=== PATIENT | female | born 2000 | race Caucasian/White ===

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

== ENCOUNTER 2022-05-31 12:45 | Emergency (ER) | payer BC, SELFPAY ==
[2022-05-31 12:46] VITALS: BP 146/84; PULSE 88; RESP 16; TEMP 36.8; O2SAT 97; BMI 39.4
--- NOTE | 2022-05-31 12:57 | HMH.EDABDPAI ---
ED Disposition Clinical Impression: Gastritis Qualifiers: Gastritis type: unspecified gastritis Chronicity: acute Gastritis bleeding: without bleeding Qualified Code(s): K29.00 - Acute gastritis without bleeding Disposition: Home, Self-Care Condition on Discharge: Fair Instructions: DI for Gastritis Additional Instructions: You may take giaa-ntb-ddlbxen antacids such as Tums. Speak with your body mechanic apprentice before starting any other kinds of medications for this reflux/gastritis. Return to the emergency department immediately if you feel worse in any way. Acetaminophen/Tylenol is also considered safe in if you need pain relief. Referrals: Adrienne Rojas APRN [Primary Care Provider] - - Critical Care Critical Care Time: No Attestation: On 05/31/22, the high probability of a clinically significant, sudden or life threatening deterioration of the following system(s) required my full and direct attention, intervention and personal management. The time I documented below is in addition to time spent performing reported procedures but includes the following listed in this critical care notation. Medical Decision Making - Stefan Inquiry Pt receiving controlled substance: No Vital Signs: 05/31/22 12:46 05/31/22 12:58 05/31/22 13:30 Temperature 98.3 F Temperature Source Oral Pulse Rate 107 H 86 Pulse Rate [Right] 88 Respiratory Rate 16 18 Blood Pressure 156/95 H 146/84 H Blood Pressure [Right Arm] 146/84 H Blood Pressure Mean 112 104 Blood Pressure Mean [Right Arm] 104 Blood Pressure Source [Right Arm] Automatic Cuff Blood Pressure Position [Right Arm] Sitting 02 Sat by Pulse Oximetry 97 99 96 Oxygen Delivery Method Room Air - Lab Data Lab results reviewed: Yes: I reviewed the patient's lab results. Lab Results 05/31/22 12:58: Urine Color Yellow, Urine Appearance Clear, Urine pH 6.0, Ur Specific [place] >= 1.030, Urine Protein Trace, Urine Glucose (UA) Negative, Urine Ketones Negative, Urine Blood Negative, Urine Nitrate Negative, Urine Bilirubin Negative, Urine Urobilinogen 1.0, Ur Leukocyte Esterase Negative, Urine RBC None, Urine WBC Occasional, Ur Squamous Epith Cells Occasional, Urine Bacteria Trace 05/31/22 13:10: WBC 9.4, RBC 4.71, Hgb 14.3, Hct 40.0, MCV 85.0, MCH 30.4, MCHC 35.8 H, RDW 12.6, Plt Count 310, MPV 7.7, Neut % (Auto) 75.3, Lymph % (Auto) 16.6, [place] % (Auto) 6.2, Eos % (Auto) 1.4, Baso % (Auto) 0.5, Neut # (Auto) 7.1, Lymph # (Auto) 1.6, [place] # (Auto) 0.6, Eos # (Auto) 0.1, Baso # (Auto) 0.1 05/31/22 13:10: Sodium 136, Potassium 3.7, Chloride 104, Carbon Dioxide 24, Anion Gap 11.7, BUN 7, Creatinine 0.70, Estimated Creat Clear 216, Estimated GFR 106, Est GFR ( Amer) 128, Glucose 111 H, Calcium 9.4, Total Bilirubin 0.4, AST 41 H, ALT 45, Alkaline Phosphatase 72, Total Protein 7.4, Albumin 4.3, Globulin 3.1, Albumin/Globulin Ratio 1.4, Lipase 77 Result diagrams: 05/31/22 13:10 05/31/22 13:10 Orders (Tests/Meds): ED MEDICATIONS Discontinued Medications Generic Name Dose Route Start Last Admin Trade Name Freq PRN Reason Stop Dose Admin Belladonna Alkaloids 60 ml 05/31/22 13:46 05/31/22 13:47 Gi Cocktail 60ml Udc PO 05/31/22 13:47 60 ml ONCE ONE Administration Dicyclomine HCl 20 mg 05/31/22 12:59 05/31/22 13:18 Dicyclomine 20 Mg/2ml Vial IM 05/31/22 13:00 20 mg ONCE ONE Administration Ondansetron HCl 4 mg 05/31/22 12:59 05/31/22 13:18 Ondansetron 4mg/2ml Vial IV 05/31/22 13:00 4 mg ONCE ONE Administration - Reevaluation(s) Time: 13:46 Reevaluation #1: The nominal pain did not improve after Bentyl. Nausea has improved some. Medical Decision Narrative: The patient presents to the emergency department complaining of epigastric pain with vomiting. Work-up in the emergency department did not reveal any life-threatening or dangerous causes for the patient's symptoms. She is 6 weeks . However she d
[2022-05-31 12:58] VITALS: BP 156/95; PULSE 107; RESP 18; O2SAT 99
[2022-05-31 13:00] LABS: Microscopic, Urine URINE MICROSCOPIC (MICROSCOPIC)
[2022-05-31 13:09] LABS: Appearance,Urine CLEAR (Clear); Bilirubin,Urine Negative (Negative); Blood, Urine Negative (Negative); Color,Urine YELLOW (Yellow); Glucose,Urine (UA) Negative (Negative); Ketones,Urine Negative (Negative); Leukocyte Esterase,Urine Negative (Negative); Nitrate,Urine Negative (Negative); Protein,Urine TRACE (Negative); Specific Gravity, Urine >= 1.030 (1.005-1.030)
--- NOTE | 2022-05-31 13:14 | PC.NURSE ---
spoke with Dino in pharmacy both meds ok to be given during
[2022-05-31 13:23] LABS: Bacteria,Urine Trace /lpf; Squamous Epithelial Cell,Urine Occasional #/hpf (0-5); WBC,Urine Occasional #/hpf (0-3)
[2022-05-31 13:24] LABS: Basophils # 0.1 K/mm3 (0-0.2); Basophils % 0.5 % (0.1-2.0); Eosinophils # 0.1 K/mm3 (0.0-0.4); Eosinophils % 1.4 % (0.1-12.0); Hemoglobin 14.3 g/dL (12.2-16.2); Lymphocytes # 1.6 K/mm3 (0.7-4.5); Lymphocytes % 16.6 % (10-50); Mean Corpuscular HGB Conc 35.8 g/dL (31.8-35.4); Mean Corpuscular Hemoglobin 30.4 pg (27.0-31.2); Mean Platelet Volume 7.7 fl (7.4-10.4); Monocytes # 0.6 K/mm3 (0.1-1.0); Monocytes % 6.2 % (1.7-9.3); Neutrophils # 7.1 K/mm3 (1.8-7.8); Neutrophils % 75.3 % (37.0-80.0); Platelet Count 310 K/mm3 (142-424); Red Blood Count 4.71 M/mm3 (4.20-5.40); Red Cell Distribution Width 12.6 % (11.5-17.5); White Blood Count 9.4 K/mm3 (4.8-10.8)
[2022-05-31 13:30] VITALS: BP 146/84; PULSE 86; O2SAT 96
--- NOTE | 2022-05-31 13:35 | PC.NURSE ---
rounded on pt at this time. No new needs at this time. Pt resting in bed
[2022-05-31 13:38] LABS: Chloride 104 mmol/L (98-107)
[2022-05-31 13:39] LABS: Potassium 3.7 mmoL/L (3.5-5.1); Sodium 136 mmol/L (136-145)
[2022-05-31 13:41] LABS: Alanine Aminotransferase 45 U/L (12-78); Aspartate Amino Transferase 41 U/L (14-36); Blood Urea Nitrogen 7 mg/dl (7-17); Creatinine Clearance Estimated 216 mL/min (50-200); Estimated Glomerular Filt Rate 106 ml/min (>60); GFR (African American) 128 ML/MIN (>60)
[2022-05-31 13:42] LABS: Albumin Level 4.3 g/dl (3.5-5.0); Albumin/Globulin Ratio 1.4 (1.1-1.8); Alkaline Phosphatase 72 U/L (38-126); Anion Gap 11.7 mEq/L (5-15); Bilirubin,Total 0.4 mg/dl (0.2-1.3); Calcium 9.4 mg/dl (8.4-10.2); Carbon Dioxide 24 mmol/L (22.0-30.0); Globulin 3.1 g/dL (1.3-3.2); Glucose 111 mg/dl (74-100); Lipase 77 U/L (23-300); Total Protein,Serum 7.4 g/dl (6.3-8.2)
[2022-05-31 14:17] VITALS: BP 144/81; PULSE 90; RESP 16; TEMP 36.8; O2SAT 98
== END 2022-05-31 14:20 | disposition home or self-care (01) ==
PROVIDERS: Emergency Provider Emergency Medicine; PCP Nurse Practitioner
DX: O26.891 Other specified pregnancy related conditions, first trimester (principal); K29.00 Acute gastritis without bleeding; Z3A.01 Less than 8 weeks gestation of pregnancy
CPT/HCPCS: 80053; 81001; 83690; 85025; 96372; 96374; 99284; J2405

== ENCOUNTER → 2022-06-17 11:18 | Outpatient (CLI) | payer OTHER, SELFPAY ==
[2022-06-17 12:18] LABS: Basophils % 0.5 % (0.1-2.0); Eosinophils % 0.5 % (0.1-12.0); Hematocrit 40.6 % (37.0-47.0); Hemoglobin 14.1 g/dL (12.2-16.2); Lymphocytes # 1.7 K/mm3 (0.7-4.5); Mean Corpuscular HGB Conc 34.7 g/dL (31.8-35.4); Mean Corpuscular Hemoglobin 30.4 pg (27.0-31.2); Mean Corpuscular Volume 87.7 fl (81-99); Mean Platelet Volume 7.7 fl (7.4-10.4); Monocytes # 0.3 K/mm3 (0.1-1.0); Neutrophils # 6.1 K/mm3 (1.8-7.8); Neutrophils % 73.9 % (37.0-80.0); Platelet Count 329 K/mm3 (142-424); Red Blood Count 4.63 M/mm3 (4.20-5.40); Red Cell Distribution Width 12.6 % (11.5-17.5); White Blood Count 8.2 K/mm3 (4.8-10.8)
[2022-06-18 06:14] LABS: Rubella Antibodies, IgG <0.90 index (Immune >0.99)
[2022-06-18 07:26] LABS: HIV Screen 4th Generation wRfx Non Reactive (Non Reactive); Hepatitis B Surface Antigen Negative (Negative); Hepatitis C Antibody <0.1 s/co ratio (0.0-0.9)
[2022-06-18 09:12] LABS: Rapid Plasma Reagin Ab Titer Non Reactive (NonRea<1:1)
== END ==
PROVIDERS: PCP Nurse Practitioner; Visit Provider Obstetrics & Gynecology
DX: Z34.90 Encounter for supervision of normal pregnancy, unspecified, unspecified trimester (principal)
CPT/HCPCS: 36415; 85025; 86592; 86703; 86762; 86850; 87086; 87340; 87380; G0432

== ENCOUNTER → 2022-09-09 12:44 | Outpatient (CLI) | payer BC, OTHER, SELFPAY ==
--- NOTE | 2022-09-09 12:44 | US_ITS ---
FINAL REPORT CLINICAL HISTORY: 20 week anatomy scan FINDINGS: There is a single live intrauterine gestation. Presentation is cephalic. The cervix is closed and measures 3.2 cm. Placenta is posterior, grade 1. movement is noted. Heart rate is noted at 150 beats per minute. Three-vessel cord with satisfactory umbilical cord insertion. Four-chamber heart is noted. ABDOMEN: Stomach is unremarkable. SPINE: No anomalies identified. AMNIOTIC FLUID: Appropriate amount. MEASUREMENTS: ULTRASOUND AGE: 20 weeks 3 days. GESTATION AGE: 20 weeks 5 days. ESTIMATED WEIGHT: 343 g GROWTH PERCENTILE: 23 % BPD: 4.85 cm corresponding to 20 weeks 5 days. OFD: 6.21 cm corresponding to 20 weeks 6 days. HC: 17.50 cm corresponding to 20 weeks 1 day. AC: 14.84 cm corresponding to 20 week 1 day. FL: 3.35 cm corresponding to 20 week 4 days. CEREBELLUM: 2.09 cm corresponding to 21 weekly day. HUMERUS: 3.24 cm corresponding to 21 weeks 0 days. HC/AC: 1.18 CI: 78% FL/BPD: 69% FL/AC: 23% IMPRESSION: Single living IUP with an ultrasound age of 20 weeks 3 days. Reviewed, Interpreted and Dictated by Joshua Wilson III, MD Transcribed by Emily Meyer Authenticated and [facility]
== END ==
PROVIDERS: PCP Nurse Practitioner; Visit Provider Obstetrics & Gynecology
DX: Z34.90 Encounter for supervision of normal pregnancy, unspecified, unspecified trimester (principal); Z3A.20 20 weeks gestation of pregnancy
CPT/HCPCS: 76811

== ENCOUNTER → 2022-10-13 09:31 | Outpatient (CLI) | payer BC, OTHER, SELFPAY ==
[2022-10-13 10:01] LABS: Basophils % 0.5 % (0.1-2.0); Eosinophils % 0.4 % (0.1-12.0); Hematocrit 39.8 % (37.0-47.0); Hemoglobin 13.1 g/dL (12.2-16.2); Lymphocytes # 1.7 K/mm3 (0.7-4.5); Lymphocytes % 18.9 % (10-50); Mean Corpuscular Hemoglobin 29.9 pg (27.0-31.2); Mean Corpuscular Volume 90.5 fl (81-99); Mean Platelet Volume 8.9 fl (7.4-10.4); Monocytes # 0.4 K/mm3 (0.1-1.0); Monocytes % 3.9 % (1.7-9.3); Neutrophils # 6.9 K/mm3 (1.8-7.8); Neutrophils % 76.4 % (37.0-80.0); Platelet Count 335 K/mm3 (142-424)
[2022-10-13 10:12] LABS: Glucose,Fasting 86 mg/dl (74-100)
[2022-10-13 11:45] LABS: Glucose 1 Hour 102 mg/dL (74-100)
== END ==
PROVIDERS: PCP Nurse Practitioner; Visit Provider Obstetrics & Gynecology
DX: Z34.90 Encounter for supervision of normal pregnancy, unspecified, unspecified trimester (principal); Z3A.20 20 weeks gestation of pregnancy
CPT/HCPCS: 36415; 82951; 85025

== ENCOUNTER 2022-10-22 08:06 | Outpatient (CLI) | payer BC, OTHER, SELFPAY ==
[2022-10-22 08:09] VITALS: BMI 36.4
[2022-10-22 08:27] LABS: Microscopic, Urine URINE MICROSCOPIC (MICROSCOPIC)
[2022-10-22 08:44] LABS: Appearance,Urine SL CLOUDY (Clear); Blood, Urine Negative (Negative); Color,Urine YELLOW (Yellow); Glucose,Urine (UA) Negative (Negative); Ketones,Urine 3+ (Negative); Leukocyte Esterase,Urine Negative (Negative); Nitrate,Urine Negative (Negative); Protein,Urine 2+ (Negative); Specific Gravity, Urine >= 1.030 (1.005-1.030)
[2022-10-22 08:55] LABS: Amphetamine/Metha Screen,Urine Negative ng/ml (<1000); Benzodiazepines Screen,Urine Negative ng/ml (<200)
[2022-10-22 08:56] LABS: Barbiturates Screen,Urine Negative ng/ml (<200); Bilirubin,Urine Negative (Negative)
[2022-10-22 08:57] VITALS: BP 131/77; PULSE 115; RESP 18; TEMP 36.7; O2SAT 97; BMI 36.4
[2022-10-22 08:57] LABS: Cannabinoid Screen,Urine Negative ng/ml (<50); Cocaine Screen,Urine Negative ng/ml (<300)
[2022-10-22 08:58] LABS: Methadone Screen,Urine Negative ng/ml (<300); Phencyclidine Screen,Urine Negative ng/ml (<25)
[2022-10-22 08:59] LABS: Bacteria,Urine 2+ /lpf; Fine Granular Casts,Urine Occasional #/lpf (0); Mucus,Urine Trace /lpf; Opiate Screen,Urine Negative ng/ml (<300); RBC,Urine Occasional #/hpf (0-3); Squamous Epithelial Cell,Urine 50-100 #/hpf (0-5)
== END 2022-10-22 09:55 | disposition home or self-care (01) ==
LOC: OBOUT 08:08 → OB 08:08
PROVIDERS: PCP Nurse Practitioner; Visit Provider Nurse Practitioner Obstetrics & Gynecology
DX: O26.892 Other specified pregnancy related conditions, second trimester (principal); Z3A.26 26 weeks gestation of pregnancy; R11.2 Nausea with vomiting, unspecified; R10.9 Unspecified abdominal pain; M54.50 Low back pain, unspecified
CPT/HCPCS: 59025; 80305; 81001; 87086; 96365; 96367; G0463; J2405

== ENCOUNTER → 2022-11-24 12:59 | Outpatient (CLI) | payer BC, OTHER, SELFPAY ==
--- NOTE | 2022-11-24 12:59 | US_ITS ---
FINAL REPORT CLINICAL HISTORY: Growth and SUSANA FINDINGS: There is a single live intrauterine gestation. Presentation is cephalic. Placenta is posterior and grade 2. Heart rate is 153 beats per minute. The cervix measures 3.5 cm. The fetus is active. Visualized anatomy is within normal limits. AMNIOTIC FLUID: Borderline low SUSANA: 9 cm MEASUREMENTS: ULTRASOUND AGE: 31 weeks 1 days. GESTATION AGE: 31 weeks 4 days. ESTIMATED WEIGHT: 1678 g GROWTH PERCENTILE: 21% BPD: 7.8 cm consistent with 31 weeks 3 days. OFD: 9.9 cm consistent with 30 weeks 3 days. HC: 28 cm consistent with 30 weeks 5 days. AC: 26.8 cm consistent with 31 weeks 0 days. FL: 6 cm consistent with 31 weeks 1 days. HC/AC: 1.04 CI: 79% FL/BPD: 77% FL/AC: 22% IMPRESSION: Single living IUP with an ultrasound age of 31 weeks 1 days. SUSANA of 9 cm, borderline low. Reviewed, Interpreted and Dictated by Joshua Wilson III, MD Transcribed by Liang Ge Authenticated and [facility]
== END ==
PROVIDERS: PCP Nurse Practitioner; Visit Provider Obstetrics & Gynecology
DX: Z34.90 Encounter for supervision of normal pregnancy, unspecified, unspecified trimester (principal)
CPT/HCPCS: 76816

== ENCOUNTER → 2022-12-29 14:50 | Outpatient (CLI) | payer BC, OTHER, SELFPAY | PROVIDERS: Visit Provider Obstetrics & Gynecology | DX: Z34.90 Encounter for supervision of normal pregnancy, unspecified, unspecified trimester (principal) ==

== ENCOUNTER → 2022-12-30 13:47 | Outpatient (CLI) | payer BC, OTHER, SELFPAY | PROVIDERS: Visit Provider Obstetrics & Gynecology | DX: Z34.90 Encounter for supervision of normal pregnancy, unspecified, unspecified trimester (principal); Z3A.36 36 weeks gestation of pregnancy | CPT/HCPCS: 86403 ==

== ENCOUNTER 2023-01-06 13:32 | Outpatient (CLI) | payer BC, OTHER, SELFPAY ==
[2023-01-06 13:49] VITALS: BMI 35.5
[2023-01-06 13:53] LABS: Microscopic, Urine URINE MICROSCOPIC (MICROSCOPIC)
[2023-01-06 13:55] LABS: Appearance,Urine CLEAR (Clear); Blood, Urine Negative (Negative); Color,Urine YELLOW (Yellow); Glucose,Urine (UA) Negative (Negative); Ketones,Urine 3+ (Negative); Leukocyte Esterase,Urine TRACE (Negative); Nitrate,Urine Negative (Negative); PH,Urine 6.5 (5.0-8.5); Protein,Urine 2+ (Negative); Specific Gravity, Urine 1.025 (1.005-1.030)
[2023-01-06 13:59] LABS: Bilirubin,Urine 1+ (Negative)
[2023-01-06 14:03] VITALS: BP 127/91; PULSE 109; RESP 18; TEMP 36.8; O2SAT 97; BMI 35.5
[2023-01-06 14:06] LABS: RBC,Urine Occasional #/hpf (0-3)
[2023-01-06 14:11] LABS: Amphetamine/Metha Screen,Urine Negative ng/ml (<1000); Barbiturates Screen,Urine Negative ng/ml (<200); Benzodiazepines Screen,Urine Negative ng/ml (<200); Cannabinoid Screen,Urine Negative ng/ml (<50); Cocaine Screen,Urine Negative ng/ml (<300); Methadone Screen,Urine Negative ng/ml (<300); Opiate Screen,Urine Negative ng/ml (<300); Phencyclidine Screen,Urine Negative ng/ml (<25)
[2023-01-06 15:13] LABS: Basophils % 0.3 % (0.1-2.0); Eosinophils # 0.1 K/mm3 (0.0-0.4); Eosinophils % 0.6 % (0.1-12.0); Hematocrit 35.4 % (37.0-47.0); Lymphocytes # 0.8 K/mm3 (0.7-4.5); Lymphocytes % 7.3 % (10-50); Mean Corpuscular HGB Conc 33.9 g/dL (31.8-35.4); Mean Corpuscular Hemoglobin 28.8 pg (27.0-31.2); Mean Corpuscular Volume 84.8 fl (81-99); Mean Platelet Volume 8.5 fl (7.4-10.4); Monocytes # 0.4 K/mm3 (0.1-1.0); Monocytes % 3.4 % (1.7-9.3); Neutrophils # 10.1 K/mm3 (1.8-7.8); Neutrophils % 88.4 % (37.0-80.0); Platelet Count 287 K/mm3 (142-424); Red Blood Count 4.17 M/mm3 (4.20-5.40); Red Cell Distribution Width 13.2 % (11.5-17.5); White Blood Count 11.4 K/mm3 (4.8-10.8)
[2023-01-06 15:18] LABS: MANUAL DIFFERENTIAL MANUAL DIFFERENTIAL (MANUAL DIFF)
[2023-01-06 15:22] LABS: Alanine Aminotransferase 16 U/L (12-78); Albumin Level 3.7 g/dl (3.5-5.0); Albumin/Globulin Ratio 1.2 (1.1-1.8); Alkaline Phosphatase 159 U/L (38-126); Anion Gap 11.7 mEq/L (5-15); Aspartate Amino Transferase 25 U/L (14-36); Bilirubin,Total 0.8 mg/dl (0.2-1.3); Blood Urea Nitrogen 6 mg/dl (7-17); Calcium 8.9 mg/dl (8.4-10.2); Carbon Dioxide 21 mmol/L (22.0-30.0); Chloride 108 mmol/L (98-107); Creatinine Clearance Estimated 232 mL/min (50-200); Estimated Glomerular Filt Rate 125 ml/min (>60); GFR (African American) 151 ML/MIN (>60); Globulin 3.2 g/dL (1.3-3.2); Glucose 85 mg/dl (74-100); Potassium 3.7 mmoL/L (3.5-5.1); Sodium 137 mmol/L (136-145); Total Protein,Serum 6.9 g/dl (6.3-8.2)
[2023-01-06 16:43] LABS: Lymphocytes % 7 % (10-50); Monocytes % 3 % (2-9); Neutrophils % 90 % (42-76); Platelet Estimate Normal; RBC Morphology Normal; Total Cells Counted 100
== END 2023-01-06 17:05 | disposition home or self-care (01) ==
LOC: OBOUT 13:33 → OB 13:34
PROVIDERS: PCP Physician Assistant; Visit Provider Obstetrics & Gynecology
DX: O60.03 Preterm labor without delivery, third trimester (principal); Z3A.37 37 weeks gestation of pregnancy; E86.0 Dehydration; R11.2 Nausea with vomiting, unspecified
CPT/HCPCS: 59025; 80053; 80305; 81001; 85007; 85025; 96365; 96366; G0463; J2405

== ENCOUNTER 2023-01-18 04:42 | Inpatient (IN) | payer BC, OTHER, SELFPAY ==
[2023-01-18 04:47] VITALS: BMI 36.8
[2023-01-18 05:36] LABS: Coronavirus 19, PCR Not Detected (NotDetected); Influenza A, PCR Not Detected (NotDetected); Influenza B, PCR Not Detected (NotDetected)
[2023-01-18 05:36] LABS: Microscopic, Urine URINE MICROSCOPIC (MICROSCOPIC)
[2023-01-18 05:40] LABS: Appearance,Urine CLEAR (Clear); Bilirubin,Urine Negative (Negative); Blood, Urine Negative (Negative); Color,Urine YELLOW (Yellow); Glucose,Urine (UA) Negative (Negative); Ketones,Urine Negative (Negative); Leukocyte Esterase,Urine 1+ (Negative); Nitrate,Urine Negative (Negative); Protein,Urine Negative (Negative); Specific Gravity, Urine 1.025 (1.005-1.030); Urobilinogen,Urine 0.2 EU/dl (0.2)
[2023-01-18 05:40] LABS: Basophils # 0.1 K/mm3 (0-0.2); Basophils % 0.9 % (0.1-2.0); Eosinophils # 0.1 K/mm3 (0.0-0.4); Eosinophils % 1.3 % (0.1-12.0); Hematocrit 34.6 % (37.0-47.0); Hemoglobin 11.9 g/dL (12.2-16.2); Lymphocytes # 2.2 K/mm3 (0.7-4.5); Lymphocytes % 20.8 % (10-50); Mean Corpuscular HGB Conc 34.3 g/dL (31.8-35.4); Mean Corpuscular Hemoglobin 28.9 pg (27.0-31.2); Mean Platelet Volume 8.3 fl (7.4-10.4); Monocytes # 0.6 K/mm3 (0.1-1.0); Monocytes % 5.9 % (1.7-9.3); Neutrophils # 7.7 K/mm3 (1.8-7.8); Neutrophils % 71.1 % (37.0-80.0); Platelet Count 312 K/mm3 (142-424); Red Blood Count 4.12 M/mm3 (4.20-5.40); Red Cell Distribution Width 13.5 % (11.5-17.5); White Blood Count 10.8 K/mm3 (4.8-10.8)
[2023-01-18 05:47] VITALS: BP 135/62; PULSE 92; RESP 17; TEMP 36.8; O2SAT 98; BMI 36.6
[2023-01-18 05:53] LABS: Amphetamine/Metha Screen,Urine Negative ng/ml (<1000); Bacteria,Urine 2+ /lpf; Mucus,Urine 1+ /lpf
[2023-01-18 05:54] LABS: Barbiturates Screen,Urine Negative ng/ml (<200); Benzodiazepines Screen,Urine Negative ng/ml (<200)
[2023-01-18 05:55] LABS: Cannabinoid Screen,Urine Negative ng/ml (<50)
[2023-01-18 05:56] LABS: Cocaine Screen,Urine Negative ng/ml (<300); Methadone Screen,Urine Negative ng/ml (<300)
[2023-01-18 05:57] LABS: Opiate Screen,Urine Negative ng/ml (<300); Phencyclidine Screen,Urine Negative ng/ml (<25)
--- NOTE | 2023-01-18 06:42 | EXP.OB.APHP ---
OB - H&P: HPI Antepartum History of Present Illness Chief complaint: Elective induction of labor History of present illness: Ms Ilene Alegre is a 22 yo at 39w3d, by first trimester ultrasound, who presents to [facility] L&D for scheduled elective induction of labor. Baby is very active. Admits to continued pelvic pressure and irregular contractions. No vaginal bleeding or leakage of fluid. Denies headache and vision changes. History of Present Criteria for establishing EDC:: based on 1st trimester US only care: good care Ultrasounds: normal mid trimester US Obstetrical complications: none Medical complications: none Labs Blood type: O (+) positive Rubella: nonimmune RPR/VDRL: nonreactive GBS status: negative HBsAG: negative PFSH PFSH Disclaimer: The information contained in this section may have been updated after the patient was seen, as this information can be updated by other users. Medical History (Updated 01/18/23 @ 06:51 by Niya Ro DO) Maternal obesity affecting , antepartum Obesity (BMI 35.0-39.9 without comorbidity) with 39 completed weeks gestation Screening for genetic disease carrier status Size of fetus inconsistent with dates in second trimester Surgical History History of tonsillectomy Family History Other No significant family history Social History Smoking Status: Never smoker alcohol intake: never substance use type: denies use current occupational status: employed and student Travel in the last 8 weeks: None housing: house marital status: single number of children: 1 education level: college Review of Systems Review of Systems Review of systems:: pertinent systems reviewed and negative unless documented below Meds Home Medications and Allergies Home Medications Medication Instructions Recorded Confirmed Type prenat.vits,seda,pzh-gvyr-qefhi 1 tab PO DAILY 06/17/22 01/18/23 History aspirin 81 mg tablet,delayed 81 mg PO DAILY Supplement 01/18/23 01/18/23 History release doxylamine succinate 25 mg tablet 12.5 mg PO HS Nausea & vomiting 01/18/23 01/18/23 History (Unisom (doxylamine)) pantoprazole 40 mg tablet,delayed 40 mg PO DAILY Heartburn 01/18/23 01/18/23 History release (Protonix) pyridoxine (vitamin B6) 25 mg 25 mg PO TID Nausea & vomiting 01/18/23 01/18/23 History tablet New Prescriptions to Start Prescriptions: Allergies Allergy/AdvReac Type Severity Reaction Status Date / Time No Known Allergies Allergy Verified 01/05/23 13:36 OB - H&P: Exam Physical Exam Vital signs: Temp Pulse Resp BP Pulse Ox 98.3 F 92 H 17 135/62 98 01/18/23 05:47 01/18/23 05:47 01/18/23 05:47 01/18/23 05:47 01/18/23 05:47 Constitutional no acute distress Routine HEENT Exam Head: Present normocephalic and atraumatic Eye: Absent conjunctivae pink ENT: Present mucous membranes moist and dentition normal Routine Neck Exam Present full ROM Routine Respiratory Exam Present CTA bilaterally and normal respiratory effort Routine Cardiovascular Exam Present RRR Routine Abdominal Exam Present soft (Gravid); Absent tenderness or distended Routine Rectal Exam Patient deferred: visual exam Routine Exam External: Present normal urethra appearance; Absent erythema, tenderness, lesions or lacerations Routine Extremities Exam Present edema (+1 bilateral lower extremity edema) and full ROM; Absent calf tenderness Routine Neurological Exam Present alert, oriented X3 and moving all extremities Routine Psychiatric Exam Present normal affect and cooperative Detailed Labor and Delivery Exam Dilation (cm): 2 Effacement (%): 70 Cervix position: mid station: -2 Consistency: soft Membranes: artificially ruptured (amniotomy p
--- NOTE | 2023-01-18 10:18 | EXP.LABOR.NO ---
Labor Note Subjective: Date: 01/18/23 Time: 10:18 regular contraction Objective: NST:: Reactive Contractions:: every 2-3 minutes Cervical Dilation:: 3-4 Effacement:: 75% Station: -2 Membranes: artificially ruptured Fetus: Monitoring?: Yes monitoring type:: Internal and External (IUPC inserted) Assessment: Labor progressing?: Yes All Active Problems (Updated 01/18/23 @ 06:51 by Niya Ro, DO) with 39 completed weeks gestation (Acute) Maternal obesity affecting , antepartum (Acute) Size of fetus inconsistent with dates in second trimester (Acute) Obesity (BMI 35.0-39.9 without comorbidity) (Acute) Screening for genetic disease carrier status (Acute) Rubella non-immune status, antepartum (Acute) Depression (Acute) Anxiety (Acute) Acid reflux (Acute) History of pre-eclampsia in prior , currently (Acute) Gastritis (Acute) Plan: Anesthesia for epidural?: Yes Continue to labor down?: Yes Continue to monitor?: Yes
--- NOTE | 2023-01-18 11:24 | EXP.ANES.CKL ---
[facility] Disclaimer: The information contained in this section may have been updated after the patient was seen, as this information can be updated by other users. Medical History (Updated 01/18/23 @ 06:51 by Niya Ro DO) Maternal obesity affecting , antepartum Obesity (BMI 35.0-39.9 without comorbidity) with 39 completed weeks gestation Screening for genetic disease carrier status Size of fetus inconsistent with dates in second trimester Surgical History History of tonsillectomy Family History Other No significant family history Social History Smoking Status: Never smoker alcohol intake: never substance use type: denies use current occupational status: employed and student Travel in the last 8 weeks: None housing: house marital status: single number of children: 1 education level: college [facility] Anesthesia Checklist Patient Identification Patient Identification: Arm Band Structural Data Admitted From: Inpatient Planned Operative Procedure/s: Labor Epidural Consent for Planned Operative Procedure(s) Verified: Yes Verified Documents: Surgical Consent and History and Physical NPO Status Verified Time NPO: 00:00 Additional verifications Anesthesia Reactions: No Airway Assessment C-Spine Mobility Assessed: Yes TMJ Mobility Assessed: Yes Neurological Assessment Level of Consciousness: Awake and Alert Anesthesia Plan Anesthesia Risk discussed: Yes Anesthesia Plan: Verified ASA Class: II Anesthesia Type: Epidural
--- NOTE | 2023-01-18 17:59 | EXP.DN ---
Delivery Note Delivery Date:: 01/18/23 Delivery Time:: 17:30 Anesthesia Type: Epidural Was labor medically induced?: No Induction method: per pitocin protocol Gestational age (weeks): 39 delivered prior to 39 weeks?: No Infant Gender: Female at 1 minute: 7 at 5 minutes: 9 LAC or MLE?: LAC Delivery Procedure:: Mom complete with epidural. Pushed for approximately 5 minutes. Head delivered spontaneously over intact perineum in FOREST position. Anterior shoulder delivered with gentle downward pressure. Posterior shoulder and remainder of body delivered spontaneously. Baby placed on maternal abdomen, mouth and nares bulb suctioned, warmed/dried and stimulated. Delayed cord clamping was performed for 60 seconds. Cord was clamped and cut by father of baby. Cord blood was obtained. Placenta delivered spontaneously and intact. First degree perineal laceration, right labial laceration and small periurethral laceration repaired with 3-0 Vicryl. Hemostasis noted. Mom and baby were skin to skin and doing well after delivery. Live female/male baby (baby's name is Al Li) APGARs 7, 9 EBL 200 mL Placental Delivery Description: Spontaneous
[2023-01-19 06:27] LABS: Basophils # 0.1 K/mm3 (0-0.2); Basophils % 0.5 % (0.1-2.0); Eosinophils # 0.1 K/mm3 (0.0-0.4); Eosinophils % 0.5 % (0.1-12.0); Hematocrit 31.5 % (37.0-47.0); Hemoglobin 10.3 g/dL (12.2-16.2); Lymphocytes % 17.4 % (10-50); Mean Corpuscular HGB Conc 32.6 g/dL (31.8-35.4); Mean Corpuscular Hemoglobin 28.6 pg (27.0-31.2); Mean Platelet Volume 9.1 fl (7.4-10.4); Monocytes # 0.7 K/mm3 (0.1-1.0); Monocytes % 5.9 % (1.7-9.3); Neutrophils # 8.6 K/mm3 (1.8-7.8); Neutrophils % 75.6 % (37.0-80.0); Platelet Count 252 K/mm3 (142-424); Red Blood Count 3.58 M/mm3 (4.20-5.40); Red Cell Distribution Width 13.5 % (11.5-17.5); White Blood Count 11.3 K/mm3 (4.8-10.8)
--- NOTE | 2023-01-19 10:59 | SW/DCPLANNER ---
Addendum entered by Jeimy Lombardi 01/23/23 07:54: Infant cord screen is NEGATIVE. Original Note: I received a referral for this patient regarding: thc first visit on 06/17/22. Patient admits to THC use and stated that she stopped once she found out she was . The following visits patient was negative for THC: 10/22/22, 01/06/23 and 01/18/23. Patient delivered female (Susan Cfiuentes) on 01/18/23. Infant's father was present at the time of my visit: Harjit Cifuentes 00. This is patient and father's second child. Patient stated that she has not previously had any Social Service involvement. Patient, Harjit, and other child will reside at [address] [place] [address]. Patient's contact number is [phone]. Patient is currently established with [facility] and is not interested in [facility]. Patient stated that she does have the following items at home: crib, carseat, clothing, diapers and will be bottle feeding. Patient is expected to discharge on 01/20/23. Weekend Receptionist will be Dr Bower per patient. Per OB nursing staff (Anitra Burdick) patient is appropriate with infant. Patient had no further questions/needs at this time.
--- NOTE | 2023-01-19 12:58 | EXP.ACUTE.PN ---
Subjective *Date: 01/19/23 *Time: 12:58 Interval history: PPD # 1 s/p Sitting comfortably in bedside recliner. Pain controlled. Bottle feeding. Light lochia. Tolerating regular diet. Voiding without difficulty and passing flatus. Denies fever/chills, chest pain and shortness of breath. No headaches, dizziness or swelling. Medical Exam Vital signs and Labs for Last 24 Hours: Laboratory Results - last 24 hr 01/19/23 06:16: WBC 11.3 H, RBC 3.58 L, Hgb 10.3 L, Hct 31.5 L, MCV 88.0, MCH 28.6, MCHC 32.6, RDW 13.5, Plt Count 252, MPV 9.1, Neut % (Auto) 75.6, Lymph % (Auto) 17.4, [place] % (Auto) 5.9, Eos % (Auto) 0.5, Baso % (Auto) 0.5, Neut # (Auto) 8.6 H, Lymph # (Auto) 2.0, [place] # (Auto) 0.7, Eos # (Auto) 0.1, Baso # (Auto) 0.1 I & O for Labs for Last 24 Hours: Intake & Output 01/16/23 01/17/23 01/18/23 01/19/23 23:59 23:59 23:59 23:59 Weight 227 lb 15.998 oz Microbiology Reports for the Last 24 Hours: Microbiology 01/18/23 05:00 Urine,Clean Catch Urine Culture - Final Multiple organisms, suggests contamination. Head: Present atraumatic and normocephalic ENT: Present normal exam Neck: Present full ROM Respiratory: Present CTA bilaterally and normal respiratory effort Cardiac: Present Reg Rate and Rhythm GI: Present soft; Absent distention or tenderness Comments:: Uterine fundus firm and below umbilicus Rectal (female): Present deferred (female): Present deferred Extremities: Present full ROM; Absent edema or calf tenderness Neuro: Present alert, awake, oriented x 3 and moves all extremities Assessment and Plan *Assessment and plan (1) with 39 completed weeks gestation: Status: Acute Category: Medical Code(s): Z3A.39 - 39 weeks gestation of (2) Status post normal vaginal delivery: Status: Acute Category: Medical (3) Maternal obesity affecting , antepartum: Status: Acute Category: Medical Code(s): O99.210 - Obesity complicating , unspecified trimester (4) History of pre-eclampsia in prior , currently : Status: Acute Category: Medical Code(s): O09.299 - Supervision of with other poor reproductive or obstetric history, unspecified trimester (5) Depression: Status: Acute Qualifiers: Depression Type: unspecified Qualified Code(s): F32.A - Depression, unspecified Category: Medical Code(s): F32.A - Depression, unspecified (6) Anxiety: Status: Acute Category: Medical Code(s): F41.9 - Anxiety disorder, unspecified (7) Rubella non-immune status, antepartum: Status: Acute Category: Medical Code(s): O09.899 - Supervision of other high risk pregnancies, unspecified trimester; Z28.39 - Other underimmunization status (8) Acute blood loss anemia: Status: Acute Category: Medical Code(s): D62 - Acute posthemorrhagic anemia Plan Continue routine care Encouraged increased ambulation MMR before discharge Plan d/c home tomorrow
[2023-01-19 20:06] VITALS: BP 127/80; PULSE 67; RESP 18; TEMP 36.6; O2SAT 97
[2023-01-20 04:00] VITALS: BP 125/57; PULSE 54; RESP 18; TEMP 36.7; O2SAT 97
[2023-01-20 07:53] VITALS: BP 114/71; PULSE 66; RESP 17; TEMP 36.7; O2SAT 100
--- NOTE | 2023-01-20 10:01 | EXP.DC.SUM ---
General Admission date:: 01/18/23 Discharge date: 01/20/23 HPI HPI HPI: PPD # 2 s/p Feeling well. Pain controlled. She is bottle/formula feeding. Light lochia. Tolerating regular diet. Voiding without difficulty and passing flatus. No headaches, dizziness or swelling. Hospital Course Hospital Course Hospital Course: Ilene Alegre is a 22 yo at 39w3d, by first trimester ultrasound, admitted to [facility] L&D for scheduled elective induction of labor. She had a normal spontaneous vaginal delivery on 01/18/23 at 1730. She delivered a live female baby (baby's name is Al) weighing 6 lb 14 oz. APGARs 7, 9. She did well . She is bottle/formula feeding. Light lochia. Voiding without difficulty and passing flatus. Tolerating regular diet. Vital signs stable, afebrile. No headaches, vision changes or swelling. Normal hospital course. She was discharged to home on PPD # 2. Follow-up in the office in 2 weeks. Exam Data for Last 24 hours Vital signs and Labs for Last 24 Hours: Temp Pulse Resp BP Pulse Ox 98.0 F 66 17 114/71 100 01/20/23 07:53 01/20/23 07:53 01/20/23 07:53 01/20/23 07:53 01/20/23 07:53 I & O for Last 24 hours: Intake & Output 01/17/23 01/18/23 01/19/23 01/20/23 23:59 23:59 23:59 23:59 Weight 227 lb 15.998 oz Microbiology Reports for the Last 24 Hours: Microbiology 01/18/23 05:00 Urine,Clean Catch Urine Culture - Final Multiple organisms, suggests contamination. Constitutional Constitutional: no acute distress *Routine HEENT Exam Head: Present normocephalic and atraumatic Eye: Absent conjunctivae pink ENT: Present mucous membranes moist *Routine Neck Exam Neck: Present full ROM *Routine Respiratory Exam Respiratory: Present CTA bilaterally and normal respiratory effort *Routine Cardiovascular Exam Cardiovascular: Present RRR *Routine Abdominal Exam Abdominal: Present soft and normoactive bowel sounds; Absent tenderness or distended Comments: Uterine fundus firm and below umbilicus *Routine Rectal Exam Patient deferred: visual exam *Routine Exam Patient deferred: external exam *Routine Extremities Exam Extremities: Present full ROM; Absent edema or calf tenderness *Routine Neurological Exam Neurological: Present alert, oriented X3 and moving all extremities Routine Psychiatric Exam Psychiatric: Present normal affect and cooperative DS: Diagnosis Discharge Diagnosis (1) with 39 completed weeks gestation: Status: Acute (2) Status post normal vaginal delivery: Status: Acute (3) Maternal obesity affecting , antepartum: Status: Acute (4) History of pre-eclampsia in prior , currently : Status: Acute (5) Depression: Status: Acute (6) Anxiety: Status: Acute (7) Rubella non-immune status, antepartum: Status: Acute (8) Acute blood loss anemia: Status: Acute Meds Home Medications and Allergies Home Medications Medication Instructions Recorded Confirmed Type ibuprofen 400 mg tablet 800 mg PO Q8HP PRN Mild To 01/20/23 Rx Moderate Pain #40 tabs New Prescriptions to Start Prescriptions: ibuprofen Niya Ro Allergies Allergy/AdvReac Type Severity Reaction Status Date / Time No Known Allergies Allergy Verified 01/05/23 13:36 Discharge Plan Disposition Patient Disposition: Home, Self-Care Condition: Good Discharge Order Discharge Orders: Discharge Order (Routine); Ordered 01/20/23 Ordered By: Niya Ro Follow up Plan Follow up with: Niya Ro DO [Staff Physician] - 03/01/23 1:30 pm Prescriptions/Medication Reconciliation: New ibuprofen 400 mg Tablet 800 mg PO Q8HP PRN (Reason: Mild To Moderate Pain) Qty: 40 0RF Discontinued prenat.vits,seda,vuv-qtnc-zceyf Tablet 1 tab PO DAILY pyridoxine (vitamin B6) 25 mg tablet 25 mg PO TID aspi
== END 2023-01-20 11:45 | disposition home or self-care (01) | DRG 807 ==
PROVIDERS: Admitting Provider Obstetrics & Gynecology; PCP Nurse Practitioner; Visit Provider Obstetrics & Gynecology
DX: O99.214 Obesity complicating childbirth (principal); Z37.0 Single live birth; O70.0 First degree perineal laceration during delivery
CPT/HCPCS: 59409; 59300; 36415; 59025; 80305; 81001; 85025; 86850; 87086; 90707; 94761; C1758; C9803; G0283; J2405; U0003; U0005

== ENCOUNTER 2023-03-16 20:43 | Emergency (ER) | payer BC, OTHER, SELFPAY ==
--- NOTE | 2023-03-16 20:54 | XR_ITS ---
PROCEDURE INFORMATION: Exam: XR Left Foot Exam date and time: 03/16/2023 8:57 PM Age: 22 years old Clinical indication: Injury or trauma; Fall; Blunt trauma; Foot; Left TECHNIQUE: Imaging protocol: Radiologic exam of the left foot. Views: 3 or more views. COMPARISON: No relevant prior studies available. FINDINGS: Bones/joints: Normal. Soft tissues: Normal. IMPRESSION: No acute findings.
--- NOTE | 2023-03-16 20:54 | XR_ITS ---
PROCEDURE INFORMATION: Exam: XR Left Ankle Exam date and time: 03/16/2023 8:59 PM Age: 22 years old Clinical indication: Injury or trauma; Fall; Blunt trauma; Ankle; Left TECHNIQUE: Imaging protocol: Radiologic exam of the left ankle. Views: 3 or more views. COMPARISON: CR XR FOOT LT MIN 3V 03/16/2023 8:57 PM FINDINGS: Bones/joints: Normal. Soft tissues: Normal. IMPRESSION: No acute findings.
[2023-03-16 20:57] VITALS: BP 144/90; PULSE 114; RESP 16; TEMP 36.8; O2SAT 99; BMI 36.6
--- NOTE | 2023-03-16 21:04 | PC.NURSE ---
Pt gone to RAD via wheelchair
--- NOTE | 2023-03-16 21:13 | PC.NURSE ---
Pt back from RAD
--- NOTE | 2023-03-16 22:21 | HMH.EDLOEX ---
Discharge Plan Disposition Patient Disposition: Home, Self-Care Chief Complaint: Extremity Injury, Lower Referrals Follow up/Referrals: Adrienne Rojas APRN [Primary Care Provider] - See instructions Negra Alston DPM [Staff Physician] - See instructions Clinical Impressions Clinical Impression: Ankle sprain and strain, Foot sprain Instructions Patient Instructions: Sprain Discharge ED Provider: Nikolai (ED),Dequan Munoz Lower Extremity Injury HPI General Chief Complaint: Extremity Injury, Lower Stated Complaint: ao 03/16@1800@HOME INJURED l [id number] Time Seen by Provider: 03/16/23 22:21 Mode of Arrival: Wheelchair Source of Information: Patient and Medical Record Limitations: No Limitations Description of Symptoms (Recalled from ER Triage Doc. by RN): Pt states that she went to step up onto a step when she twisted her left ankle. Reports pain under her left foot since 1800. Is unable to bear weight on that ankle. Denies any fall. History of Present Illness HPI Narrative: acute injury lt foot and ankle tonight with pain and dec wt bearing MD complaint: ankle injury and foot injury Onset (ago): hour(s) Injury: Left: ankle and foot Type of Injury: unknown Place: home Severity: moderate Context: fall Associated symptoms: unable to bear weight Other symptoms: none Related Data Allergies Allergy/AdvReac Type Severity Reaction Status Date / Time No Known Allergies Allergy Verified 03/02/23 11:27 [facility] Disclaimer: The information contained in this section may have been updated after the patient was seen, as this information can be updated by other users. Medical History Acute blood loss anemia Encounter for insertion of mirena IUD Mirena IUD inserted 03/02/23 History of pre-eclampsia in prior , currently Maternal obesity affecting , antepartum Obesity (BMI 35.0-39.9 without comorbidity) with 39 completed weeks gestation Screening for genetic disease carrier status 07/15/22 - negative for 14 conditions tested including CF, Fragile X and SMA Size of fetus inconsistent with dates in second trimester Status post normal vaginal delivery Surgical History History of tonsillectomy Family History Other No significant family history Social History Smoking Status: Current every day smoker alcohol intake: never substance use type: denies use current occupational status: employed and student Travel in the last 8 weeks: None housing: house marital status: single number of children: 1 education level: college ROS Obtained: Yes All systems reviewed & no additional complaints except as documented Physical Exam General General appearance: alert Head Head exam: normocephalic Eye Eye exam: Present PERRL and EOMI ENT ENT exam: Present mucous membranes moist Neck Neck exam: Present trachea midline Respiratory Respiratory exam: Absent respiratory distress Cardiovascular Cardiovascular exam: Present regular rate Expanded Lower Extremity Exam Left: Lower leg exam: Present Achilles tendon intact; Absent tenderness Ankle exam: Present tenderness Foot/toe exam: Present tenderness and swelling; Absent full ROM or deformity Neurovascular/Tendon exam: Absent pulse deficit or motor deficit Neurological Exam Neurological exam: Present alert, oriented X3 and CN II-XII intact; Absent motor sensory deficit Skin Skin exam: Absent rash Medical Decision Making Medical Records Medical records reviewed: Yes I reviewed the patient's medical records. Stefan Inquiry Pt receiving controlled substance: No Vital Signs: 03/16/23 20:57 Temperature 98.2 F Temperature Source Oral Pulse Rate [Apical] 114 H Respiratory Rate 16 Blo
[2023-03-16 22:34] VITALS: BP 128/82; PULSE 84; RESP 18; TEMP 37.1
== END 2023-03-16 22:33 | disposition home or self-care (01) ==
PROVIDERS: Emergency Provider Emergency Medicine; PCP Nurse Practitioner
DX: S93.402A Sprain of unspecified ligament of left ankle, initial encounter (principal); X50.1XXA Overexertion from prolonged static or awkward postures, initial encounter; F17.200 Nicotine dependence, unspecified, uncomplicated
CPT/HCPCS: 73610; 73630; 99283

== ENCOUNTER 2023-12-17 14:58 | Emergency (ER) | payer BC, OTHER, SELFPAY ==
[2023-12-17 15:40] VITALS: BP 126/77; PULSE 86; RESP 20; TEMP 37.1; O2SAT 100; BMI 38.4
--- NOTE | 2023-12-17 16:08 | EXP.UTC ---
Discharge Plan Disposition Patient Disposition: Home, Self-Care Condition: Good Prescriptions Prescriptions: New oseltamivir [Tamiflu] 75 mg capsule 75 mg PO Q12H 5 Days Qty: 10 0RF Referrals Follow up/Referrals: Adrienne Rojas APRN [Primary Care Provider] - See instructions Activity Restrictions/Add. Instructions Additional Instructions/Restrictions: Start Tamiflu today if you are going to take it. Discussed risk and possible benefits. Lots of rest Increase Fluids water, Gatorade, powerade, pedialyte,if infant/toddler/child Alternate Tylenol and / or ibuprofen as discussed for fever, aches, chills Follow up IMMEDIATELY with your family doctor for new or worsening Symptoms OR no noticeable improvement over the next 48-72 hours, 911 for difficulty or breathing You or your child area contagious until no fever, aches, chills for 24 hours with medication for symptoms Help Prevent the spread of influenza: ?Wash your hands often. Use soap and water. Wash your hands after you use the bathroom, change a child's diapers, or sneeze. Wash your hands before you prepare or eat food. Use gel hand cleanser that has 60% alcohol, when soap and water are not available. Do not touch your eyes, nose, or mouth unless you have washed your hands first. Cover your mouth when you sneeze or cough. Cough into a tissue or the bend of your arm. If you use a tissue, throw it away immediately and wash your hands. Clean shared items with a germ-killing spool cleaner. Clean table surfaces, doorknobs, and light switches. Do not share towels, silverware, and dishes with people who are sick. Wash bed sheets, towels, silverware, and dishes with soap and water. Wear a mask over your mouth and nose if you are sick. The face mask may help protect others from becoming infected with the flu. Wear the mask when in common areas of your home or if you seek care with a healthcare provider. Stay away from others if you are sick. Stay at home until 24 hours after your fever and symptoms are gone. Clinical Impressions Clinical Impression: Influenza Stand Alone Forms Stand Alone Forms: Work/School Release Instructions Patient Instructions: DI for Influenza -- Adult Discharge ED Provider: Harmony Peralta [facility] HPI General Stated complaint: COUGH,FEVER, CONGESTION Mode of Arrival: Ambulatory Source of Information: Patient Limitations: No Limitations Time Seen by Provider: 12/17/23 16:08 Description of Symptoms (Recalled from Triage Doc. by RN): PATIENT C/O CONGESTION AND FEVER HEENT Symptoms (Recalled from RN notes): Yes Resp Symptoms (Recalled from RN notes): No Skin Symptoms (Recalled from RN notes): No MS Symptoms (Recalled from RN notes): No Functional Status (Recalled from RN notes): WNL History of Present Illness Provider Complaint: Patient states that recently tested positive for Influenza now she is having symptoms States that she has been having body aches, chills, fever and nasal congestion so she came in to get tested Related Data Previous Rx's Medication Instructions Recorded oseltamivir 75 mg capsule (Tamiflu) 75 mg PO Q12H 5 days #10 caps 12/17/23 Allergies Allergy/AdvReac Type Severity Reaction Status Date / Time No Known Allergies Allergy Verified 03/24/23 10:25 Worker's Comp Is this a Worker's Comp case?: [facility] Dis[facility]: The information contained in this section may have been updated after the patient was seen, as this information can be updated by other users. Medical History Acute blood loss anemia Encounter for insertion of mirena IUD Mirena IUD inserted 03/02/23 History of pre-eclampsia in prior , currently Maternal obesity affecting , antepartum Obesity (BMI 35.0-39.9 without comorbidity) with 39 completed weeks gestation Screening for genetic disease carrier status 07/15/22 - negative for 14 conditions tested including CF, Fragile X and SMA Size of fetus inconsistent with dates in second trimester Status post normal vaginal delivery Surgical History History of tonsillectomy Family History Other No significant family history Social History Smoking Status: Current every day smoker alcohol intake: never substance use type: denies use current occupational status: employed and student Travel in the last 8 weeks: None housing: house marital status: single number of children: 1 education level: college ROS Obtained: Yes All systems reviewed & no additional complaints except as documented and Yes Systems reviewed as appropriate & no additional complaints except as documented Constitutional Constitutional: Reports system reviewed and no additional complaints, except as documented, Reports as per HPI, Reports body ache, Reports chills and Reports fever(s) ENT Ears, Nose, Mouth, and Throat: Reports system reviewed and no additional complaints, except as documented, Reports as per HPI, Reports nasal congestion and Reports nasal discharge Cardiovascular Cardiovascular: Reports system reviewed and no additional complaints, except as documented and Reports as per HPI Respiratory Respiratory: Reports system reviewed and no additional complaints, except as documented and Reports as per HPI Gastrointestinal Gastrointestingal: Reports system reviewed and no additional complaints, except as documented and as per HPI Physical Exam General General appearance: alert and in no apparent distress ENT ENT exam: Present mucous membranes moist Expanded ENT Exam Nose exam: Absent sinus tenderness Throat exam: Present normal inspection Respiratory Respiratory exam: Present normal lung sounds bilaterally; Absent respiratory distress or wheezes Cardiovascular Cardiovascular exam: Present regular rate, normal rhythm and normal heart sounds Neurological Exam Neurological exam: Present alert, oriented X3 and normal gait Medical Decision Making Stefan Inquiry Pt receiving controlled substance: No Stefan was queried for this patient: No Vital Signs: 12/17/23 15:40 Temperature 98.8 F Temperature Source Oral Pulse Rate [Right Brachial] 86 Respiratory Rate 20 Blood Pressure [Right Arm] 126/77 Blood Pressure Mean [Right Arm] 93 Blood Pressure Source [Right Arm] Automatic Cuff Blood Pressure Position [Right Arm] Sitting 02 Sat by Pulse Oximetry 100 Oxygen Delivery Method Room Air Lab Data Lab results reviewed: Yes I reviewed the patient's lab results.
[2023-12-17 16:14] VITALS: BP 126/77; PULSE 86; RESP 20; TEMP 37.1; O2SAT 100
[2023-12-17 16:16] LABS: UTC Influenza A Antigen Negative (Negative)
[2023-12-17 16:17] LABS: UTC Influenza B Antigen Positive (Negative); UTC Strep Screen (Rapid) Negative (Negative)
== END 2023-12-17 16:21 | disposition home or self-care (01) ==
PROVIDERS: Emergency Provider Nurse Practitioner; PCP Nurse Practitioner
DX: J10.1 Influenza due to other identified influenza virus with other respiratory manifestations (principal); R50.9 Fever, unspecified; R05.9 Cough, unspecified; R09.81 Nasal congestion; M79.18 Myalgia, other site; F17.210 Nicotine dependence, cigarettes, uncomplicated; E66.9 Obesity, unspecified; Z68.38 Body mass index [BMI] 38.0-38.9, adult
CPT/HCPCS: 87804; 87880; 99204; 99212; G0463